=== PATIENT | female | born 1945 ===

== ENCOUNTER 2017-04-08 15:57 | Outpatient (CLI) | payer MEDICARE ==
--- NOTE | 2017-04-08 16:51 | Mammography Report ---
Screening mammogram: Baseline exam. Routine views demonstrate a generally fatty replaced breast pattern. There is a focal asymmetry in the superolateral right breast and also in the infero-medial left breast. No other findings. Impression: Bilateral asymmetries. Recommendation: Spot compression imaging bilaterally and ultrasound as needed. BI-RADS CATEGORY: 0 = Needs additional imaging evaluation ACR BI-RADS MAMMOGRAPHIC CODES: 0 = Needs additional imaging evaluation; 1 = Negative; 2 = Benign; 3 = Probably benign; 4 = Suspicious; 5 = Malignant; 6 = Known biopsy-proven malignancy COMMENT: 1. Dense breast tissue, i.e., adenosis, fibrocystic changes, etc., may obscure an underlying neoplasm. 2. Approximately 10% of cancers are not detected with mammography. 3. A negative mammography report should not delay biopsy if a clinically suspicious mass is present.
== END 2017-04-08 15:58 | disposition home or self-care (01) ==
LOC: SPVWC 15:57
PROVIDERS: ATTEND Physician Assistant
DX: Z12.31 Encounter for screening mammogram for malignant neoplasm of breast (principal)
CPT/HCPCS: 77067; G0202